=== PATIENT | female | born 1990 | race Caucasian/White ===

== ENCOUNTER 2025-03-22 18:02 | Emergency (ER) | payer OTHER ==
[~2025-03-22] VITALS: Ht 162.6 cm; Wt 100.0 kg
[2025-03-22 18:04] VITALS: O2SAT 96
[2025-03-22] MEDS: CYCLOBENZAPRINE 10MG TABLET PO ONE (19:00)
[2025-03-22] MEDS: ACETAMINOPHEN 325MG TABLET PO ONE (19:00)
[2025-03-22] MEDS: KETOROLAC 30MG/ML VIAL IM ONE (19:00)
[2025-03-22] MEDS ORDERED: TOPUD MT (21:01)
[2025-03-22] MEDS ORDERED: CYCL5TAB3 MT (21:01)
[2025-03-22] MEDS ORDERED: NAPR-679 MT (21:01)
[2025-03-22 21:16] VITALS: BP 138/91; PULSE 97; RESP 16; TEMP 36.6; O2SAT 98
== END 2025-03-22 21:20 | disposition home or self-care (01) ==
LOC: ER 18:02
DX: S13.4XXA Sprain of ligaments of cervical spine, initial encounter (principal); I10 Essential (primary) hypertension; Z79.1 Long term (current) use of non-steroidal anti-inflammatories (NSAID); V43.52XA Car driver injured in collision with other type car in traffic accident, initial encounter; Y92.410 Unspecified street and highway as the place of occurrence of the external cause; Y93.89 Activity, other specified; Y99.8 Other external cause status
CPT/HCPCS: 81025; 71111; 73030; 73080; 73562; 99284; J1885; Z7610